=== PATIENT | male | born 1970 | race Caucasian/White ===

== ENCOUNTER 2024-05-28 10:27 | Emergency (ER) | payer OTHER ==
[~2024-05-28] VITALS: Ht 187.9 cm; Wt 113.4 kg
[2024-05-28] MEDS ORDERED: TRAMADOL HCL50 MG PO (10:49)
[2024-05-28] MEDS ORDERED: Acetaminophen/Oxycodone 5 MG/325 MG TABLET PO ONE (10:50)
[2024-05-28] MEDS ORDERED: DIAZEPAM 5 MG TAB PO ONE (10:50)
[2024-05-28] MEDS ORDERED: MELOXICAM15 MG PO (10:58)
== END 2024-05-28 11:20 | disposition home or self-care (01) ==
LOC: ED 10:27
DX: M54.40 Lumbago with sciatica, unspecified side (principal)